=== PATIENT | male | born 1940 | race Caucasian/White ===

== ENCOUNTER 2019-05-18 14:31 | Inpatient (IN) | payer MEDICARE ==
--- NOTE | 2019-05-18 15:17 | RAD ---
EXAM: Single view of the chest HISTORY: Chest pain COMPARISON: 03/09/2016 FINDINGS: Single view of the chest shows a normal sized cardiomediastinal silhouette. The patient is status post CABG. There is no evidence of consolidation, mass, or pleural effusion. The bones are unremarkable. IMPRESSION: No evidence of acute cardiopulmonary disease
[2019-05-18 15:27] LABS: #Lymphocytes 1.8 thou/uL (1.20-3.40); #Monocytes 1.8 thou/uL (0.11-0.59); %Eosinophils 0.2 % (0.0-10.0); %Lymphocytes 13.2 % (21.0-51.0); %Monocytes 13.3 % (0.0-10.0); %Neutrophils 73.4 % (42.0-75.0); Hemoglobin 15.6 g/dL (14.0-18.0); Mean Corpuscular HGB CONC 33.4 g/dL (32.0-36.0); Mean Corpuscular Hemoglobin 30.8 pg (27.0-31.0); Mean Corpuscular Volume 92.1 fL (78.0-98.0); Mean Platelet Volume 8.1 fL (7.4-10.4); Platelet Count 200 thou/uL (130-400); RBC Distribution Width 12.4 % (11.5-14.5); Red Blood Cell (RBC) Count 5.06 mill/uL (4.70-6.10); White Blood Cell (WBC) Count 13.6 thou/uL (4.8-10.8)
[2019-05-18 15:45] LABS: ALT (SGPT) 82 U/L (8-55); AST (SGOT) 243 U/L (5-34); Albumin 3.8 g/dL (3.4-4.8); Alkaline Phosphatase 130 U/L (40-110); Anion Gap 23 mmol/L (10-20); BUN (Urea Nitrogen) 67 mg/dL (8.4-25.7); Bilirubin, Total 0.6 mg/dL (0.2-1.2); Calc. Creatinine Clearance 0 mL/min (70-130); Calcium 8.2 mg/dL (7.8-10.44); Carbon Dioxide 19 mmol/L (23-31); Chloride 99 mmol/L (98-107); Estimated GFR-MDRD 32; Globulin 2.5 g/dL (2.4-3.5); Glucose 366 mg/dL (83-110); Potassium 4.9 mmol/L (3.5-5.1); Protein, Total 6.3 g/dL (5.8-8.1); Sodium 136 mmol/L (136-145)
[2019-05-18 16:09] LABS: CKMB 25.2 ng/mL (0-6.6)
[2019-05-18 16:12] LABS: CK (CPK) 8429 U/L (30-200)
--- NOTE | 2019-05-18 17:35 | PDOC.FPRHP ---
- History of Present Illness Chief Complaint: chest pain, fall History of Present Illness: 78 yo M reports he got up out of bed this AM and fell, says his knees gave out. Denies syncope, no dizziness, and no unilateral weakness. He could not get back up and Reports he was crawling along the carpet trying to get up. He did hit his head on the door frame as he was trying to pull himself up and slipped back down. Prior to fall, he noted chest pain. [place] like someone was "hitting him with a hammer." Has not had this chest pain before. Did not feel as bad as the chest pain prior to this open heart surgery 20 years ago. [place] SOB. Has had minimal cough lately. ED Course: Found phone and called son who called ambulance. - Allergies/Adverse Reactions Allergies Allergy/AdvReac Type Severity Reaction Status Date / Time No Known Allergies Allergy Verified 03/04/16 13:24 - Home Medications Medication Instructions Recorded Confirmed Type Allopurinol 200 mg PO DAILY PRN 03/04/16 05/18/19 History Aspirin [Aspirin EC] 81 mg PO DAILY 03/04/16 05/18/19 History Carvedilol 12.5 mg PO BID 03/04/16 05/18/19 History Insulin NPH Human Isophane 80 unit SC DAILY-AC 03/04/16 05/18/19 History [NovoLIN N] Isosorbide Mononitrate [Isosorbide 30 mg PO DAILY 03/04/16 05/18/19 History Mononitrate ER] Nitroglycerin 0.4 mg SL PRN PRN 03/04/16 05/18/19 History glyBURIDE [Glyburide] 10 mg PO DAILY 03/04/16 05/18/19 History Atorvastatin Calcium [Lipitor] 40 mg PO QPM- 05/18/19 05/18/19 History Insulin NPH Human Isophane 40 units SQ QPM- 05/18/19 05/18/19 History [NovoLIN N] Nitrofurantoin Macrocrystal 100 mg PO DAILY PRN 05/18/19 05/18/19 History [Nitrofurantoin] Spalding-3/DHA/EPA/Fish Oil [Fish Oil 2,000 mg PO DAILY 05/18/19 05/18/19 History Conc 1,000 mg Softgel] Tamsulosin HCl 0.4 mg PO QPM 05/18/19 05/18/19 History Torsemide [Demadex] 20 mg PO DAILY 05/18/19 05/18/19 History Torsemide [Demadex] 40 mg PO ROUTINE 05/18/19 05/18/19 History - History PMHx: gout, "kidney problems" sees Dr. Steel, Type 2 DM (takes insulin), HTN, sleep apnea PSHx: - open heart surgery 20 years ago FHx: - Social: - Smoking: none. - Previously chewed tobacco for 40 years. quit 20 years ago - Alcohol: denies. Quit in 1979. - Illicit drugs: denies. - Review of Systems General: denies: fever/chills, weight/appetite/sleep changes Eyes: denies: vision changes ENT: denies: nasal congestion, rhinorrhea Respiratory: reports: cough, shortness of breath, other (sleeps w/ CPAP, has sleep apnea). denies: congestion Cardiovascular: reports: chest pain, palpitation (prior to fall.). denies: edema, orthopnea Gastrointestinal: denies: nausea, vomiting, diarrhea, abdominal pain Genitourinary: denies: dysuria Skin: denies: rashes, jaundice Musculoskeletal: denies: pain Neurological: reports: weakness. denies: syncope, seizure Psychological: denies: anxiety, depression - Vital signs BP: 118/72, Pulse: 82, Resp: 24, Temp: 97.8 (Oral), Pain: 2, O2 sat: 99 on ( Room Air), Time: 05/18/2019 16:22. FMR H&P: Results - Labs Result Diagrams: 05/19/19 04:24 05/19/19 04:24 Lab results: WBC 13.6 thou/uL (4.8-10.8) H 05/18/19 14:59 Hgb 15.6 g/dL (14.0-18.0) 05/18/19 14:59 Hct 46.6 % (42.0-52.0) 05/18/19 14:59 MCV 92.1 fL (78.0-98.0) 05/18/19 14:59 Plt Count 200 thou/uL (130-400) 05/18/19 14:59 Neutrophils % 73.4 % (42.0-75.0) 05/18/19 14:59 Sodium 136 mmol/L (136-145) 05/18/19 14:59 Potassium 4.9 mmol/L (3.5-5.1) 05/18/19 14:59 Chloride 99 mmol/L (98-107) 05/18/19 14:59 Carbon Dioxide 19 mmol/L (23-31) L 05/18/19 14:59 BUN 67 mg/dL (8.4-25.7) H 05/18/19 14:59 Creatinine 2.04 mg/dL (0.7-1.3) H 05/18/19 14:59 Glucose 366 mg/dL (83-110) H 05/18/19 14:59 Calcium 8.2 mg/dL (7.8-10.44) 05/18/19 14:59 Total Bilirubin 0.6 mg/dL (0.2-1.2) 05/18/19 14:59 AST 243 U/L (5-34) H 05/18/19 14:59 ALT 82 U/L (8-55) H 05/18/19 14:59 Alkaline Phosphatase 130 U/L (40-110) H 05/18/19 14:59 Creatine Kinase 8429 U/L (30-200) H 05/18/19 14:59 CK-MB (CK-2) 25.2 ng/mL (0-6.6) H* 05/18/19 15:00 B-Natriuretic Peptide 129.3 pg/mL (0-100) H 05/18/19 14:59 Serum Total Protein 6.3 g/dL (5.8-8.1) 05/18/19 14:59 Albumin 3.8 g/dL (3.4-4.8) 05/18/19 14:59 FMR H&P: A/P - Problem List (1) Rhabdomyolysis Current Visit: Yes Status: Acute Code(s): M62.82 - RHABDOMYOLYSIS (2) Chest pain Current Visit: Yes Status: Acute Code(s): R07.9 - CHEST PAIN, UNSPECIFIED - Plan 78 yo M admitted for: Elevated troponin: - ACS rule out - 0.197, will trend - EKG NSR - chest pain leading to fall in an elderly man - remote history of CABG 20 years ago without cardiac issues since that time - risk stratify w/ A1C, TSH, magnesium, phosphorus - consider stress test and ECHO in AM if stable Rhabdomyolysis Dehydration - pt was down on floor for unknown amount of time - also has CKD - Creatinine is around baseline, however CK is quite elevated - fluids of 200mL/hr LR Transaminitis - will trend Chronic conditions: CKD HTN HLD - continue home meds T2DM, uncontrolled - continue home insulin, A1C is ~13 here today Code: cardiac/CPR only, DNI Fluids: 200mL/hr of LR Diet: NPO at midnight VTE PPx: heparin GI ppx: none FMR H&P: Upper Level - Plan Date/Time: 05/18/19 9034 PCP: Admitted as TAMP patient from ED, patient and daughter state PCP is Dr. Ed Cueva HPI: This is an 78 yo male being admitted after falling and being unable to get up. He walked out of his bed this morning at about 0600 to go the restroom and states that his legs gave out and he was unable to get up. He called his son for help around 1300. He denies hitting his head or losing consciousness. He states he had a left sided sharp chest pain which lasted a few minutes and did radiate down his left arm. He states he had a CABG 20 years ago and follows with dr Lam but does not remember any cath or stress tests since that time. Denies any recent illnesses although he has had decreased appetite. Patient denies slurred speech, visual changes, or localized weakness to one side of the other at any time during the episode. REVIEW OF SYSTEMS: Gen: no fever, chills, or sweats Neuro: denies headache Eyes: no visual changes ENT: no hearing changes, no sore throat, no congestion Resp: denies cough, SOB Card: see hpi GI: no N/V/D, no abdominal pain Skin: no rash, no erythema PHYSICAL EXAMINATION: General: NAD, alert and oriented x3 HEENT: PERRLA, EOMI, normal sclera, oropharynx without erythema or exudate Neck: Supple. Full ROM. Heart/Cardiovascular System: RRR, Cap refill < 3 seconds, no rub, no murmur Lungs/Respiratory System: CTA-B, no resp distress Abdomen/Gastro-Intestinal System: no abdominal tenderness, normal bowel sounds Extremities: Warm extremities. No cyanosis or edema Neuro: No gross deficits appreciated. CN 2-12 grossly intact Psychiatry: Awake, Alert and cooperative with exam Skin: No lesions, rashes, or ulcers A/P: # Elevated troponin, r/o ACS - Initial trop 0.197, BNP 129 (last was 26 in 2019) - EKG shows LBBB, no ST changes or T inv, awaiting old EKG results - HEART 8, will plan for stress test in AM - Trend trops - Has elevated Cr from rhabdo which could contribute to eleavated trop but must rule out cardiac source 2/2 strong history # Rhabdomyolysis, - CK 8429, Cr 2.04 (baseline around 2.2 over the last year) - No signs of volume overload on exam - 2L fluids in ED, cont with 200ml/hr - Will watch closely for signs of volume overload # DMII - States he takes 80 novlin in AM, 40 novolin pm - Family bringing home meds - Sliding scale PRN # Elevated transaminases - Suspect this is 2/2 being volume down and rhabdo - Will trend # Elevated white count - Suspect 2/2 volume down - CXR neg, will check UA 2/2 rhabdo # HTN, HLD - Home meds # Fall - PT/OT, patient is interested in inpt rehab after d/c - NIHSS: 0, suspect ACS vs deconditioning CVA is on differential but seems less likely at this time Fluids: LR 200ml/hr Code status: DNI PPx: heparin Dispo: 2-3 days Addendum - Attending - Attending Attestation Date/Time: 05/19/19 0808 I personally evaluated the patient and discussed the management with Dr. Lezama on 05/18/19 I agree with the History, Examination, Assessment and Plan documented above with any addition or exceptions noted below. 78 y.o. WM with h/o CAD s/p CABG x20 years, gout, unspecified urological problem , Type 2 DM (takes insulin), HTN, sleep apnea suffered left sided CP without radiation after getting up from sleep around 0600, which caused him to fall to floor. He denies LOC. He was unable to get himself back up nor call for help for over 6 hours until finally found cell phone and called his son, who called 911. Currently CP resolved and PE at baseline. EKG shows LBBB, undetermined age, Transaminases c/w Rhabdo. Will R/O [place], gentle hydration to flush CPK, prepare for Nuclear Stress Test in a.m. Pt. erroneously assigned to [facility] for admission while PCP is Dr. Ed Cueva: team notified [facility] of error and will transfer care to them to assume care in a.m.
[2019-05-18 18:38] LABS: Troponin I 0.173 ng/mL (< 0.028)
[2019-05-18] MEDS ORDERED: Nitroglycerin 0.4 MG TAB (25 Tab Bottle) PO PRN (19:15)
[2019-05-18] MEDS ORDERED: Ondansetron ODT 4 MG TAB PO PRN (19:15)
[2019-05-18] MEDS ORDERED: Ondansetron PF 4 MG/2 ML Vial IVP PRN (19:15)
[2019-05-18 19:47] LABS: Hemoglobin A1c 13.1 % (4.0-6.0)
[2019-05-18] MEDS ORDERED: Dextrose 5% in Water 1,000 ML IV PRN (19:54)
[2019-05-18] MEDS ORDERED: Dextrose 50% Abboject 50 ML SYRINGE SLOW IVP PRN (19:54)
[2019-05-18 20:53] VITALS: BMI 32.2
[2019-05-18] MEDS: Heparin 5,000 UNITS/ML VIAL SC SCH (21:48)
[2019-05-18 21:49] LABS: Phosphorus 4.6 mg/dL (2.3-4.7)
[2019-05-18] MEDS: Insulin Regular 300 UNITS/3 ML VIAL SC PRN (21:49)
[2019-05-18] MEDS: Lactated Ringer's 1,000 ML IV SCH (21:54)
[2019-05-18 21:56] LABS: Troponin I 0.169 ng/mL (< 0.028)
--- NOTE | 2019-05-18 22:12 | PDOC.BPN ---
- Brief Progress Note spoke to Dr. Reagan at [id number] to transfer care as patient's PCP is Ed Cueva
[2019-05-18] MEDS ORDERED: Nitroglycerin 0.4 MG TAB (25 Tab Bottle) SL PRN (22:55)
[2019-05-18] MEDS ORDERED: Allopurinol 100 MG TAB PO PRN (22:55)
[2019-05-19] MEDS: Lactated Ringer's 1,000 ML IV SCH ×4 (01:02→17:10)
[2019-05-19 05:06] LABS: ALT (SGPT) 66 U/L (8-55); AST (SGOT) 142 U/L (5-34); Albumin 3.4 g/dL (3.4-4.8); Alkaline Phosphatase 110 U/L (40-110); Anion Gap 16 mmol/L (10-20); BUN (Urea Nitrogen) 61 mg/dL (8.4-25.7); Bilirubin, Total 0.5 mg/dL (0.2-1.2); CK (CPK) 3388 U/L (30-200); Calc. Creatinine Clearance 47 mL/min (70-130); Calcium 8.3 mg/dL (7.8-10.44); Carbon Dioxide 20 mmol/L (23-31); Cardiac Risk 5.8 (Less than 4.5); Chloride 102 mmol/L (98-107); Cholesterol 121 mg/dl (< 200 Desired); Estimated GFR-MDRD 38; Globulin 2.7 g/dL (2.4-3.5); Glucose 266 mg/dL (83-110); HDL Cholesterol 21 mg/dL (>60 Neg Risk); LDL Cholesterol, Calculated 62 mg/dL; Potassium 4.2 mmol/L (3.5-5.1); Protein, Total 6.1 g/dL (5.8-8.1); Sodium 134 mmol/L (136-145); Triglycerides 188 mg/dL (Less than 150)
[2019-05-19 05:22] LABS: Band 4 % (5-11); Hemoglobin 14.5 g/dL (14.0-18.0); Lymphocytes 18 % (21-51); MDiff Complete? YES; Mean Corpuscular HGB CONC 34.4 g/dL (32.0-36.0); Monocytes 11 % (0-10); Neutrophil 67 % (42-75); Platelet Count 193 thou/uL (130-400); Platelet Morphology Comment Appears Adequate; RBC Distribution Width 12.5 % (11.5-14.5); RBC Morphology Normal; Red Blood Cell (RBC) Count 4.52 mill/uL (4.70-6.10); White Blood Cell (WBC) Count 11.1 thou/uL (4.8-10.8)
[2019-05-19 05:54] LABS: Bacteria/HPF 2+ HPF (None Seen); Bilirubin Negative (Negative); Blood, Urine 2+ (Negative); Clarity Clear (Clear); Glucose, Urine (Dipstick) >=1000 mg/dL (Negative); Leukocyte Negative Leu/uL (Negative); Mucous/LPF Rare LPF (<2+); Nitrite Negative (Negative); Protein, Urine (Dipstick) 30 mg/dL (Neg-Trace); Squamous Epithelial 0-3 HPF (0-3); Urobilinogen Normal mg/dL (Less than 2)
[2019-05-19] MEDS ORDERED: ADENOSINE 60 MG/20 ML VIAL ONE (08:28)
[2019-05-19] MEDS ORDERED: Torsemide 20 MG TAB PO SCH (09:00)
[2019-05-19] MEDS: Carvedilol 6.25 MG TAB PO SCH ×2 (13:03→21:14)
[2019-05-19] MEDS: Aspirin 81 mg Enteric Coated Tablet PO SCH (13:03)
[2019-05-19] MEDS: NPH, Human Insulin Isophane 300 UNIT/3 ML VIAL SC SCH (13:03)
[2019-05-19] MEDS: Isosorbide Mononitrate (ER) 30 MG TAB PO SCH (13:04)
[2019-05-19] MEDS: Heparin 5,000 UNITS/ML VIAL SC SCH ×3 (13:04→21:13)
[2019-05-19] MEDS: Torsemide 20 MG TAB PO SCH ×2 (13:04→16:49)
--- NOTE | 2019-05-19 13:31 | NM ---
EXAM: CARDIAC SPECT HISTORY: Chest pain, coronary artery disease, status post CABG, hypertension and diabetes TECHNIQUE: A myocardial perfusion scan was performed using the single isotope 1 day protocol with george hnetium 99m sestamibi. [10 mCi] was injected intravenously for the rest exam followed by 30 mCi for the stress study. Pharmacologic stress with adenosine was monitored and interpreted by MARLIN Allen FINDINGS: There is a fixed defect in the inferolateral wall. No reversible defects are seen. Gated SPECT LVEF: 47% Wall motion exam: Inferolateral wall hypokinesis IMPRESSION: No evidence of reversible ischemia.
[2019-05-19] MEDS ORDERED: HumaLOG 300 UNITS/3 ML VIAL SC PRN (14:39)
[2019-05-19] MEDS: NPH, Human Insulin Isophane 300 UNIT/3 ML VIAL SQ SCH (16:48)
--- NOTE | 2019-05-19 16:48 | PDOC.HOSPP ---
- Subjective Encounter Date: 05/19/19 Encounter Time: 16:46 Subjective: Pt seen for followup re: chest pain. c/o pain across chest, soreness. - Objective Vital Signs & Weight: Vital Signs (12 hours) Temp Pulse Pulse Resp BP BP BP 05/19/19 15:34 97.8 F 99 20 141/81 H 05/19/19 13:47 97.3 F L 97 18 05/19/19 13:45 89 156/77 H 180/79 H 05/19/19 10:06 05/19/19 09:00 97.2 F L 101 H 18 BP Pulse Ox 05/19/19 15:34 96 05/19/19 13:47 156/77 H 99 05/19/19 13:45 05/19/19 10:06 94 L 05/19/19 09:00 139/63 94 L Weight Weight 219 lb 3.2 oz I&O: 05/18/19 05/19/19 05/20/19 06:59 06:59 06:59 Intake Total 2760 Output Total 600 Balance 2160 Result Diagrams: 05/19/19 04:24 05/19/19 04:24 Additional Labs: Accuchecks 05/19/19 05/19/19 05/19/19 16:21 14:21 05:36 POC Glucose 343 H 270 H 244 H 05/18/19 20:19 POC Glucose 328 H Labs and MARs reviewed by me EKG Reviewed by me: Yes (Tele: NSR) Hospitalist ROS - Review of Systems Constitutional: denies: fever, chills, sweats, weakness, malaise Respiratory: denies: cough, shortness of breath, SOB with excertion, pleuritic pain, wheezing Cardiovascular: reports: chest pain. denies: palpitations, orthopnea, paroxysmal noc. dyspnea, edema, light headedness Gastrointestinal: denies: nausea, vomiting, abdominal pain, diarrhea, constipation, melena, hematochezia Genitourinary: denies: dysuria, frequency, incontinence, hematuria, retention Skin: reports: bruising - Medication Medications: Active Medications Generic Name Dose Route Start Last Admin Trade Name Freq PRN Reason Stop Dose Admin Aspirin 81 mg 05/19/19 09:00 05/19/19 13:03 Ecotrin PO Not Given DAILY GEOVANNY Carvedilol 12.5 mg 05/19/19 09:00 05/19/19 13:03 Coreg PO Not Given BID GEOVANNY Heparin Sodium (Porcine) 5,000 units 05/18/19 21:00 05/19/19 15:01 Heparin SC 5,000 units TID GEOVANNY Administration Insulin Human NPH 80 unit 05/19/19 07:30 05/19/19 13:03 Humulin N SC Not Given DAILY-AC [facility] Insulin Human Regular 0 units 05/18/19 19:54 05/18/19 21:49 Humulin R SC 4 unit .BEDTIME SLIDING SC PRN Administration Bedtime Correctional Scale Isosorbide Mononitrate 30 mg 05/19/19 09:00 05/19/19 13:04 Imdur Er PO Not Given DAILY GEOVANNY Torsemide 20 mg 05/19/19 09:00 05/19/19 13:04 Demadex PO Not Given QAM [facility] - Exam General - other findings: Obese Eye: anicteric sclera ENT: moist mucosa Neck: supple Heart: RRR, no gallops, no rubs, normal peripheral pulses Respiratory: CTAB, no wheezes, no rales, no ronchi, normal chest expansion Gastrointestinal: soft, non-tender, non-distended, normal bowel sounds Extremities: no cyanosis Skin - other findings: Multiple bruises Psychiatric: normal affect, normal behavior, A&O x 3 Hosp A/P (1) Chest pain Code(s): R07.9 - CHEST PAIN, UNSPECIFIED Status: Acute (2) Rhabdomyolysis Code(s): M62.82 - RHABDOMYOLYSIS Status: Acute (3) DM2 (diabetes mellitus, type 2) Status: Chronic (4) Dyslipidemia Code(s): E78.5 - HYPERLIPIDEMIA, UNSPECIFIED Status: Chronic (5) Chronic kidney disease, stage 3 Code(s): N18.3 - CHRONIC KIDNEY DISEASE, STAGE 3 (MODERATE) Status: Chronic - Plan plan discussed w/ family, PT/OT, out of bed/ambulate Decrease IV fluids to 75 ml/hr. Watch for volume overload. Global hypokinesis on stress test, no reversib;le ischemia. CK improved to 3388. Start accuchecks, insulin sliding scale. CKD stable. Continue statin.
[2019-05-19] MEDS: Atorvastatin Calcium 40 MG TAB PO SCH (16:49)
[2019-05-19] MEDS: Acetaminophen 325 MG TAB PO PRN (16:52)
[2019-05-19] MEDS: Sodium Chloride 0.9% 1,000 ML IV SCH (17:11)
[2019-05-19] MEDS ORDERED: traMADol HCl 50 MG TAB PO PRN (17:12)
[2019-05-19] MEDS: Insulin Regular 300 UNITS/3 ML VIAL SC PRN (21:12)
[2019-05-19] MEDS: Tamsulosin HCl 0.4 MG CAP PO SCH (21:15)
[2019-05-20 04:55] LABS: #Lymphocytes 2.8 thou/uL (1.20-3.40); #Monocytes 1.2 thou/uL (0.11-0.59); #Neutrophils 4.8 thou/uL (1.40-6.50); %Basophils 0.1 % (0.0-1.0); %Eosinophils 0.6 % (0.0-10.0); %Lymphocytes 31.4 % (21.0-51.0); %Monocytes 13.8 % (0.0-10.0); %Neutrophils 54.1 % (42.0-75.0); Hemoglobin 14.1 g/dL (14.0-18.0); Mean Corpuscular HGB CONC 33.2 g/dL (32.0-36.0); Mean Corpuscular Hemoglobin 30.4 pg (27.0-31.0); Mean Corpuscular Volume 91.8 fL (78.0-98.0); Mean Platelet Volume 8.2 fL (7.4-10.4); Platelet Count 186 thou/uL (130-400); RBC Distribution Width 12.3 % (11.5-14.5); Red Blood Cell (RBC) Count 4.63 mill/uL (4.70-6.10); White Blood Cell (WBC) Count 8.8 thou/uL (4.8-10.8)
[2019-05-20] MEDS: Sodium Chloride 0.9% 1,000 ML IV SCH ×2 (05:40→17:56)
[2019-05-20 06:08] LABS: Anion Gap 13 mmol/L (10-20); BUN (Urea Nitrogen) 46 mg/dL (8.4-25.7); CK (CPK) 1555 U/L (30-200); Calc. Creatinine Clearance 59 mL/min (70-130); Calcium 8.3 mg/dL (7.8-10.44); Carbon Dioxide 22 mmol/L (23-31); Chloride 105 mmol/L (98-107); Estimated GFR-MDRD 49; Glucose 197 mg/dL (83-110); Potassium 3.8 mmol/L (3.5-5.1); Sodium 136 mmol/L (136-145)
[2019-05-20] MEDS: NPH, Human Insulin Isophane 300 UNIT/3 ML VIAL SC SCH (08:17)
[2019-05-20] MEDS: Heparin 5,000 UNITS/ML VIAL SC SCH ×3 (08:17→20:27)
[2019-05-20] MEDS: glyBURIDE 5 MG TAB PO SCH (08:17)
[2019-05-20] MEDS: Fish Oil 1,000 MG CAP PO SCH (08:18)
[2019-05-20] MEDS: Isosorbide Mononitrate (ER) 30 MG TAB PO SCH (08:18)
[2019-05-20] MEDS: Torsemide 20 MG TAB PO SCH ×2 (08:18→17:56)
[2019-05-20] MEDS: Carvedilol 6.25 MG TAB PO SCH ×2 (08:18→20:32)
[2019-05-20] MEDS: Aspirin 81 mg Enteric Coated Tablet PO SCH (08:18)
[2019-05-20] MEDS: Acetaminophen 325 MG TAB PO PRN (17:56)
[2019-05-20] MEDS: Atorvastatin Calcium 40 MG TAB PO SCH (17:56)
[2019-05-20] MEDS: NPH, Human Insulin Isophane 300 UNIT/3 ML VIAL SQ SCH (17:56)
--- NOTE | 2019-05-20 20:08 | PDOC.HOSPP ---
- Subjective Subjective: Doing ok. Still has some CP. Says he did not have CP prior to the fall. The CP is related to him crawling around on the floor for several hours trying to get up. No other complaints. - Objective Vital Signs & Weight: Vital Signs (12 hours) Temp Pulse Pulse Pulse Resp BP BP 05/20/19 15:30 97.4 F L 78 16 05/20/19 15:11 78 05/20/19 11:53 97.5 F L 73 20 05/20/19 10:18 05/20/19 08:37 75 76 115/56 L 05/20/19 08:18 115/56 L BP BP Pulse Ox 05/20/19 15:30 130/60 97 05/20/19 15:11 130/63 05/20/19 11:53 123/63 97 05/20/19 10:18 96 05/20/19 08:37 140/63 05/20/19 08:18 Weight Weight 219 lb 3.2 oz I&O: 05/19/19 05/20/19 05/21/19 06:59 06:59 06:59 Intake Total 2760 4815 Output Total 600 2000 Balance 2160 2815 Result Diagrams: 05/20/19 04:37 05/20/19 05:38 Additional Labs: Accuchecks 05/20/19 05/20/19 05/20/19 16:33 11:13 05:45 POC Glucose 137 H 308 H 197 H 05/19/19 20:39 POC Glucose 360 H Hospitalist ROS - Medication Medications: Active Medications Generic Name Dose Route Start Last Admin Trade Name Shyamq PRN Reason Stop Dose Admin Acetaminophen 650 mg 05/18/19 19:15 05/20/19 17:56 Tylenol PO 650 mg Q4H PRN Administration Headache/Fever/Mild Pain (1-3) Aspirin 81 mg 05/19/19 09:00 05/20/19 08:18 Ecotrin PO 81 mg DAILY GEOVANNY Administration Atorvastatin Calcium 40 mg 05/19/19 17:00 05/20/19 17:56 Lipitor PO 40 mg QPM- GEOVANNY Administration Carvedilol 12.5 mg 05/19/19 09:00 05/20/19 08:18 Coreg PO 12.5 mg BID GEOVANNY Administration Fish Oil 2,000 mg 05/20/19 09:00 05/20/19 08:18 Fish Oil PO 2,000 mg DAILY GEOVANNY Administration Glyburide 10 mg 05/20/19 07:30 05/20/19 08:17 Diabeta PO 10 mg DAILY-AC GEOVANNY Administration Heparin Sodium (Porcine) 5,000 units 05/18/19 21:00 05/20/19 15:41 Heparin SC 5,000 units TID GEOVANNY Administration Sodium Chloride 1,000 mls @ 75 mls/hr 05/19/19 17:00 05/20/19 17:56 Normal Saline 0.9% IV 1,000 mls .[id number] GEOVANNY Administration Insulin Human Lispro 0 units 05/19/19 14:39 05/20/19 12:32 Humalog SC 5 unit .MILD SLIDING SCALE PRN Administration Mild Correctional Scale Insulin Human NPH 80 unit 05/19/19 07:30 05/20/19 08:17 Humulin N SC 80 unit DAILY-AC GEOVANNY Administration Insulin Human NPH 40 unit 05/19/19 17:00 05/20/19 17:56 Humulin N SQ 40 unit QPM-WM GEOVANNY Administration Insulin Human Regular 0 units 05/18/19 19:54 05/19/19 21:12 Humulin R SC 5 unit .BEDTIME SLIDING SC PRN Administration Bedtime Correctional Scale Isosorbide Mononitrate 30 mg 05/19/19 09:00 05/20/19 08:18 Imdur Er PO 30 mg DAILY GEOVANNY Administration Tamsulosin HCl 0.4 mg 05/19/19 21:00 05/19/19 21:15 Flomax PO 0.4 mg QPM GEOVANNY Administration Torsemide 40 mg 05/19/19 17:00 05/20/19 17:56 Demadex PO 40 mg 1700 GEOVANNY Administration Torsemide 20 mg 05/19/19 09:00 05/20/19 08:18 Demadex PO 20 mg QAM GEOVANNY Administration Tramadol HCl 50 mg 05/19/19 17:12 05/19/19 17:51 Ultram PO 50 mg Q6H PRN Administration Pain - Exam General Appearance: NAD, awake alert Heart: RRR, no murmur, no gallops, no rubs, normal peripheral pulses Respiratory: CTAB, no wheezes, no rales, no ronchi, normal chest expansion, no tachypnea, normal percussion Skin: normal turgor Neurological: no focal deficits Musculoskeletal: normal tone, no muscle wasting, generalized weakness Psychiatric: normal affect, normal behavior, A&O x 3 Hosp A/P (1) Chest pain Code(s): R07.9 - CHEST PAIN, UNSPECIFIED Status: Acute (2) Rhabdomyolysis Code(s): M62.82 - RHABDOMYOLYSIS Status: Acute (3) Chronic kidney disease, stage 3 Code(s): N18.3 - CHRONIC KIDNEY DISEASE, STAGE 3 (MODERATE) Status: Chronic (4) DM2 (diabetes mellitus, type 2) Status: Chronic (5) Dyslipidemia Code(s): E78.5 - HYPERLIPIDEMIA, UNSPECIFIED Status: Chronic - Plan CP is musculoskeletal in nature. No ischemia on the stress test. CPK is improving. He is high risk because of his age and CKD. Will await for a safe level prior to DC. Continue IVF for now.
[2019-05-20] MEDS: Tamsulosin HCl 0.4 MG CAP PO SCH (20:32)
[2019-05-21] MEDS: Acetaminophen 325 MG TAB PO PRN (00:05)
[2019-05-21 04:50] LABS: #Basophils 0.1 thou/uL (0.0-0.2); #Eosinphils 0.1 thou/uL (0.0-0.7); #Lymphocytes 3.6 thou/uL (1.20-3.40); #Monocytes 1.2 thou/uL (0.11-0.59); #Neutrophils 4.1 thou/uL (1.40-6.50); %Basophils 0.5 % (0.0-1.0); %Eosinophils 0.9 % (0.0-10.0); %Lymphocytes 39.9 % (21.0-51.0); %Monocytes 13.2 % (0.0-10.0); %Neutrophils 45.4 % (42.0-75.0); Hemoglobin 13.7 g/dL (14.0-18.0); Mean Corpuscular HGB CONC 32.5 g/dL (32.0-36.0); Mean Corpuscular Volume 92.5 fL (78.0-98.0); Mean Platelet Volume 7.7 fL (7.4-10.4); Platelet Count 194 thou/uL (130-400); RBC Distribution Width 12.3 % (11.5-14.5); Red Blood Cell (RBC) Count 4.55 mill/uL (4.70-6.10); White Blood Cell (WBC) Count 9.1 thou/uL (4.8-10.8)
[2019-05-21 05:10] LABS: Anion Gap 13 mmol/L (10-20); BUN (Urea Nitrogen) 33 mg/dL (8.4-25.7); CK (CPK) 977 U/L (30-200); Calc. Creatinine Clearance 60 mL/min (70-130); Calcium 8.2 mg/dL (7.8-10.44); Carbon Dioxide 28 mmol/L (23-31); Chloride 103 mmol/L (98-107); Estimated GFR-MDRD 49; Glucose 73 mg/dL (83-110); Potassium 3.5 mmol/L (3.5-5.1); Sodium 140 mmol/L (136-145)
[2019-05-21] MEDS: Sodium Chloride 0.9% 1,000 ML IV SCH (06:27)
[2019-05-21] MEDS: glyBURIDE 5 MG TAB PO SCH (09:54)
[2019-05-21] MEDS: Isosorbide Mononitrate (ER) 30 MG TAB PO SCH (09:54)
[2019-05-21] MEDS: Carvedilol 6.25 MG TAB PO SCH (09:54)
[2019-05-21] MEDS: Torsemide 20 MG TAB PO SCH (09:54)
[2019-05-21] MEDS: NPH, Human Insulin Isophane 300 UNIT/3 ML VIAL SC SCH (09:54)
[2019-05-21] MEDS: Aspirin 81 mg Enteric Coated Tablet PO SCH (09:54)
[2019-05-21] MEDS: Heparin 5,000 UNITS/ML VIAL SC SCH (09:55)
[2019-05-21] MEDS: Fish Oil 1,000 MG CAP PO SCH (09:55)
[2019-05-21] MEDS ORDERED: Nitroglycerin 0.4 MG TAB (25 Tab Bottle) SL PRN ×2 (10:45)
[2019-05-21 12:19] VITALS: BP 126/65; TEMP 97.7
--- NOTE | 2019-05-22 12:49 | DIS ---
DATE OF ADMISSION: 05/18/2019 DATE OF DISCHARGE: 05/21/2019 DISCHARGE DIAGNOSES: 1. Rhabdomyolysis. 2. Musculoskeletal chest pain. 3. Fall. 4. Chronic kidney disease stage 3. 5. Diabetes mellitus. 6. Dyslipidemia. HISTORY OF PRESENT ILLNESS: This patient is an 78-year-old male, who had a fall at home, was unable to get himself up off the floor, had to crawl around for several hours before he was able to finally get to a phone call for some help. Subsequent to all of that the patient had some chest pain and was brought to the emergency department for the evaluation. At time of his presentation, his vital signs were stable. White count was slightly elevated at 13.6. BUN was 67, creatinine was 2.04. CK was 8429. Troponin was slightly elevated at 0.197. HOSPITAL COURSE: The patient was admitted to the hospital with rhabdomyolysis, chest pain, and indeterminate level troponins. He subsequently received aggressive hydration. He had a stress test with Nuclear Medicine and had no evidence of reversible ischemia with an ejection fraction of 47%. His chest pain remained essentially unchanged and was felt to be consistent with musculoskeletal pain, and he was quite clear that his pain did not stop until after his fall at this time on the ground. His troponins remained study without significant change and were felt to be likely in the expected range for his age and renal function. He subsequently had progressive improvement of his creatine kinase level given the patient's age and chronic kidney disease. He was felt to be at high risk, and therefore, continued to be hydrated until his CK level was below 1000. At which time, he was felt to be stable for discharge to home. He was getting up with physical therapy, and he felt comfortable and was back to functional baseline in order to go back to home. On the day of discharge, temperature is 97.7, pulse is 80, respirations are 18, and O2 saturations are 96% on room air, BP is 126/65. He is awake, alert, pleasant, and cooperative. Heart was regular without murmurs. His lungs were clear. Abdomen was benign. Extremities with no edema. DISPOSITION: The patient is discharged to home. ACTIVITY: As tolerated. He will remain on a diabetic renal diet. MEDICATIONS: We will include, 1. Insulin Novolin N 80 units subcu daily. 2. Aspirin 81 mg daily. 3. Nitroglycerin 0.4 mg sublingual p.r.n. 4. Isosorbide 30 mg daily. 5. Allopurinol 200 mg daily. 6. Glyburide 10 mg daily. 7. Carvedilol 12.5 mg b.i.d. 8. Torsemide 40 mg daily at 1700 hours and 20 mg daily at 0900 hours. 9. Tamsulosin 0.4 mg at bedtime. 10. Fish oil 2000 mg daily. 11. Lipitor 40 mg at bedtime. 12. Humulin N 40 units subcu at bedtime before evening meal. 13. Nitrofurantoin 100 mg daily p.r.n. FOLLOWUP: He is to follow up with Dr. Tahir Cueva in 7 days, and he can return to the hospital anytime that he feels the need to do so. TIME SPENT: Total time in discharge activities was 31 minutes. Job ID: [id number] MTDD
--- NOTE | 2019-05-22 14:25 | EKG ---
Test Reason : Blood Pressure : / mmHG Vent. Rate : 108 BPM Atrial Rate : 108 BPM P-R Int : 192 ms QRS Dur : 130 ms QT Int : 364 ms P-R-T Axes : -06 -49 051 degrees QTc Int : 487 ms Sinus tachycardia Left axis deviation Left bundle branch block Abnormal ECG Confirmed by KEVIN BECKFORD DO ([id number]), manuscript editor BONY WELLS ([id number]) on 05/22/2019 2:25:10 PM Referred By: Confirmed By:KEVIN BECKFORD DO
--- NOTE | 2019-05-23 23:53 | PQF ---
[employer] Crystal Reports Winform Viewer TYRONTARIQ PURCELL DAVID R MD [id number] [facility] [id number] CLINICAL DOCUMENTATION CLARIFICATION FORM: POST DISCHARGE Addendum to original discharge summary date: ____ Late entry note date: __ DATE: 05/23/19 ATTN:Brain Venegas Please exercise your independent, professional judgment in responding to the clarification form. Clinical indicators are provided on the bottom of this form for your review Can you please further clarify the specificity of Rhabdomyolysis? Please check appropriate box(s): [x ] Traumatic Rhabdomyolysis [ ] Non-Traumatic Rhabdomyolysis [ ] Other diagnosis please specify [ ] Unable to determine In addition, please specify: Present on Admission (POA): [ x ] Yes [ ] No [ ] Unable to determine For continuity of documentation, please document condition throughout progress notes and discharge summary. Thank You. CLINICAL INDICATORS - SIGNS / SYMPTOMS / LABS DS pg.1- 78 years old male who had fall at home, was unable to get himself up off the floor DS pg.1- CK was 8429, creatinine slightly elevated at 0.197 Ds pg.1- admitted to the hospital with rhabdomyolysis, chest pain and indeterminate level troponins DS pg.1- Creatinine of 2.04 RISK FACTORS 78 years old- H and P pg.1 fall- H and P pg.1 CKD- H and P pg.4 HTN- H and P pg.4 HLD- H and P pg.4 T2DM, uncontrolled- H and P pg.4 Dehydration- H and P pg.4 TREATMENTS: IV hydration- DS pg.1 CPK monitoring- Laboratory Chest X ray 05/18 Stress test 05/19 (This form is maintained as a part of the permanent medical record) 2014 [employer]. All Rights Reserved Haroon [email or web address] [not provided] [email or web address]
--- NOTE | 2019-05-23 23:57 | PQF ---
TARIQ ACKERMAN DAVID R MD [id number] CLINICAL DOCUMENTATION CLARIFICATION FORM: POST DISCHARGE Addendum to original discharge summary date: ____ Late entry note date: __ DATE: 05/23/19 ATTN:Brain Venegas Please exercise your independent, professional judgment in responding to the clarification form. Clinical indicators are provided on the bottom of this form for your review Can you please further clarify the diagnosis based on the clinical indicators below? Please check appropriate box(s): [ ] GISSEL [ ] GISSEL on CKD3 [x ] CKD 3 only [ ] insignificant laboratory findings [ ] Other diagnosis [ ] Unable to determine In addition, please specify: Present on Admission (POA): [x ] Yes [ ] No [ ] Unable to determine For continuity of documentation, please document condition throughout progress notes and discharge summary. Thank You. CLINICAL INDICATORS - SIGNS / SYMPTOMS/ LABS are present in the medical record: Laboratory: Creatinine 2.04, 1.75, 1.40.1.39H DS pg.1- Creatinine of 2.04 DS pg.1- 78 years old male who had fall at home, was unable to get himself up off the floor DS pg.1- CK was 8429, creatinine slightly elevated at 0.197 Ds pg.1- admitted to the hospital with rhabdomyolysis, chest pain and indeterminate level troponins RISK FACTORS 78 years old- H and P pg.1 fall- H and P pg.1 CKD- H and P pg.4 HTN- H and P pg.4 HLD- H and P pg.4 T2DM, uncontrolled- H and P pg.4 Dehydration- H and P pg.4 TREATMENT Creatinine monitoring- Laboratory IV hydration- DS pg.1 (This form is maintained as a part of the permanent medical record) 2014 [employer]. All Rights Reserved [email or web address] [not provided] MTDD
== END 2019-05-21 12:56 | disposition home or self-care (01) | DRG 566 ==
LOC: ERS 14:31 → 2NO 20:13
PROVIDERS: ADMIT Family Medicine; ATTEND Family Medicine
DX: T79.6XXA Traumatic ischemia of muscle, initial encounter (principal); N18.3 Chronic kidney disease, stage 3 (moderate); E11.22 Type 2 diabetes mellitus with diabetic chronic kidney disease; E78.5 Hyperlipidemia, unspecified; M10.9 Gout, unspecified; E86.0 Dehydration; E11.65 Type 2 diabetes mellitus with hyperglycemia; I25.10 Atherosclerotic heart disease of native coronary artery without angina pectoris; E78.00 Pure hypercholesterolemia, unspecified; Z79.4 Long term (current) use of insulin; Z87.891 Personal history of nicotine dependence; Z79.82 Long term (current) use of aspirin; Z95.1 Presence of aortocoronary bypass graft; W19.XXXA Unspecified fall, initial encounter; I12.9 Hypertensive chronic kidney disease with stage 1 through stage 4 chronic kidney disease, or unspecified chronic kidney disease; G47.30 Sleep apnea, unspecified; I44.7 Left bundle-branch block, unspecified; E66.9 Obesity, unspecified; Z68.32 Body mass index [BMI] 32.0-32.9, adult; R07.89 Other chest pain
CPT/HCPCS: 36415; 36416; 71045; 78452; 80048; 80053; 80061; 81001; 82550; 82553; 83036; 83735; 83880; 84100; 84443; 84484; 85025; 93005; 93017; 96360; A9500; J0153; J1644; J1815

== ENCOUNTER → 2019-06-08 | Day surgery (SDC) | payer MEDICARE ==
[2019-06-01 16:20] VITALS: BMI 32.5
[~2019-06-08] MED LIST: Fentanyl 100 MCG/2 ML VIAL ONE; Heparin (Artline) 1,000 ML ONE; Heparin 10,000 UNITS/1 ML VIAL ONE; Insulin Regular 300 UNITS/3 ML VIAL ONE; Iopamidol 370 76% 100 ML VIAL ONE; Iopamidol 370 76% 50 ML VIAL FS ONE; Lidocaine 1% (PF) 30 ML VIAL ONE; Midazolam HCl 2 mg/2 ml Vial ONE; Nitroglycerin 100MG/250ML BOT 0 ML ONE
[2019-06-08 06:38] LABS: #Basophils 0.1 thou/uL (0.0-0.2); #Eosinphils 0.3 thou/uL (0.0-0.7); #Lymphocytes 3.2 thou/uL (1.20-3.40); #Monocytes 0.8 thou/uL (0.11-0.59); #Neutrophils 4.1 thou/uL (1.40-6.50); %Basophils 0.8 % (0.0-1.0); %Eosinophils 3.2 % (0.0-10.0); %Lymphocytes 37.9 % (21.0-51.0); %Monocytes 9.6 % (0.0-10.0); %Neutrophils 48.4 % (42.0-75.0); Hemoglobin 13.5 g/dL (14.0-18.0); Mean Corpuscular HGB CONC 32.3 g/dL (32.0-36.0); Mean Corpuscular Hemoglobin 30.2 pg (27.0-31.0); Mean Corpuscular Volume 93.8 fL (78.0-98.0); Mean Platelet Volume 7.3 fL (7.4-10.4); Platelet Count 238 thou/uL (130-400); Red Blood Cell (RBC) Count 4.47 mill/uL (4.70-6.10); White Blood Cell (WBC) Count 8.5 thou/uL (4.8-10.8)
[2019-06-08 06:45] LABS: INR-International Normal Ratio 0.9; PTT 25.2 SEC (22.9-36.1); Prothrombin Time 12.1 SEC (12.0-14.7)
[2019-06-08 06:58] LABS: ALT (SGPT) 22 U/L (8-55); AST (SGOT) 15 U/L (5-34); Albumin 4.2 g/dL (3.4-4.8); Alkaline Phosphatase 187 U/L (40-110); Anion Gap 14 mmol/L (10-20); BUN (Urea Nitrogen) 32 mg/dL (8.4-25.7); Bilirubin, Total 0.4 mg/dL (0.2-1.2); Calc. Creatinine Clearance 50 mL/min (70-130); Calcium 9.5 mg/dL (7.8-10.44); Carbon Dioxide 24 mmol/L (23-31); Chloride 104 mmol/L (98-107); Estimated GFR-MDRD 40; Globulin 2.9 g/dL (2.4-3.5); Glucose 135 mg/dL (83-110); Potassium 4.1 mmol/L (3.5-5.1); Protein, Total 7.1 g/dL (5.8-8.1); Sodium 138 mmol/L (136-145)
--- NOTE | 2019-06-09 05:11 | PRG ---
DATE OF SERVICE: SUBJECTIVE: Mr. Kern underwent cardiac catheterization today. He was found to have diffuse three vessel atherosclerosis with patent saphenous vein graft to the diagonal, patent internal mammary to LAD, diffusely diseased, patent saphenous vein graft to the right coronary. Creatinine is 1.67. He did receive extra fluid prior to the catheterization. Medical therapy is the only option. Increased isosorbide to 60 mg a day; added Zetia 10 mg a day to try to get his LDL cholesterol as low as possible. Another option with the heart failure would be changing him to one of the newer diabetic agents, SGLT2 inhibitors, although they are very expensive unfortunately and he indicates that would be a likely barrier for him to get these. Otherwise, we will continue current medical regimen. 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 Job ID: [id number]
== END ==
LOC: CCL 05:51
PROVIDERS: ATTEND Internal Medicine Cardiovascular Disease
PROC: B2111ZZ Fluoroscopy of Multiple Coronary Arteries using Low Osmolar Contrast (ICD-10-PCS; principal; 2019-06-08)
DX: I25.10 Atherosclerotic heart disease of native coronary artery without angina pectoris (principal); I13.0 Hypertensive heart and chronic kidney disease with heart failure and stage 1 through stage 4 chronic kidney disease, or unspecified chronic kidney disease; E11.22 Type 2 diabetes mellitus with diabetic chronic kidney disease; N18.3 Chronic kidney disease, stage 3 (moderate); I50.22 Chronic systolic (congestive) heart failure; E78.00 Pure hypercholesterolemia, unspecified; E87.5 Hyperkalemia; Z79.4 Long term (current) use of insulin; Z79.82 Long term (current) use of aspirin; Z79.899 Other long term (current) drug therapy; Z87.891 Personal history of nicotine dependence; Z95.1 Presence of aortocoronary bypass graft
CPT/HCPCS: 36415; 36416; 76942; 80053; 85025; 85347; 85610; 85730; 93455; 99152; 99153; C1769; G0278; J1644; J1815; J2001; J2250; J3010; Q9967

== ENCOUNTER 2020-07-24 09:38 | Day surgery (SDC) | payer MEDICARE ==
[2020-07-20 14:04] VITALS: BMI 35.4
[2020-07-24] MEDS ORDERED: Fentanyl 100 MCG/2 ML VIAL ONE (12:58)
[2020-07-24] MEDS ORDERED: Iothalamate Meglumine 60% 50 ML VIAL FS ONE (13:00)
[2020-07-24] MEDS ORDERED: Ondansetron PF 4 MG/2 ML Vial ONE (13:25)
[2020-07-24] MEDS ORDERED: PROPOFOL 200 MG/20 ML VIAL ONE (13:25)
[2020-07-24] MEDS ORDERED: Lidocaine 1% PF 5 ML VIAL ONE (13:25)
[2020-07-24] MEDS ORDERED: PHENYLEPHRINE-NS 100 MCG/ML 10 ML SYRINGE ONE (13:25)
== END 2020-07-24 14:45 | disposition home or self-care (01) ==
LOC: SDC 09:38
PROVIDERS: ATTEND Urology
PROC: 0TBC8ZZ Excision of Bladder Neck, Via Natural or Artificial Opening Endoscopic (ICD-10-PCS; principal; 2020-07-24)
DX: N32.0 Bladder-neck obstruction (principal); N32.3 Diverticulum of bladder; I25.10 Atherosclerotic heart disease of native coronary artery without angina pectoris; E11.9 Type 2 diabetes mellitus without complications; I10 Essential (primary) hypertension; M10.9 Gout, unspecified; Z79.4 Long term (current) use of insulin; Z79.82 Long term (current) use of aspirin; Z79.899 Other long term (current) drug therapy; Z95.0 Presence of cardiac pacemaker; Z95.1 Presence of aortocoronary bypass graft
CPT/HCPCS: 93005; 93010; J0690; J2405; J2704; J3010; Q9961

== ENCOUNTER 2021-02-20 10:41 | Emergency (ER) | payer MEDICARE ==
[2021-02-20] MEDS ORDERED: Ibuprofen 800 MG TAB ONE (11:23)
[2021-02-20] MEDS ORDERED: Cyclobenzaprine 10 MG TAB ONE (11:23)
== END 2021-02-20 11:34 | disposition home or self-care (01) ==
LOC: ERS 10:41
DX: M54.31 Sciatica, right side (principal); M10.9 Gout, unspecified; E11.9 Type 2 diabetes mellitus without complications; I10 Essential (primary) hypertension; E78.00 Pure hypercholesterolemia, unspecified; Z79.4 Long term (current) use of insulin
CPT/HCPCS: 99283

== ENCOUNTER 2022-03-21 12:34 | Emergency (ER) | payer OTHER, MEDICARE | END 2022-03-21 14:46 | disposition home or self-care (01) | LOC: ERS 12:34 | DX: S09.90XA Unspecified injury of head, initial encounter (principal); S80.211A Abrasion, right knee, initial encounter; E11.9 Type 2 diabetes mellitus without complications; E78.00 Pure hypercholesterolemia, unspecified; I10 Essential (primary) hypertension; W01.10XA Fall on same level from slipping, tripping and stumbling with subsequent striking against unspecified object, initial encounter | CPT/HCPCS: 70450; 72125 ==